=== PATIENT | female | born 1990 | race Caucasian/White ===

== ENCOUNTER 2016-09-30 15:32 | Emergency (ER) | payer OTHER ==
[2016-09-30 15:40] VITALS: BP 119/90; BMI 49.4
--- NOTE | 2016-09-30 16:10 | DR.GENAD ---
HPI - PCP Primary Care Physician: judit - Complaint/Symptoms Chief Complaint Doctors Comments: Patient is [place] of spiders; saw spider in cab of truck and jumped out of truck. She head a "pop" in knee. Chief Complaint:: patient stated she jumped off a ginger [employer]oot[employer] gator atv that was moving. landed on her feet and heard a pop in her right knee. - Source History Provided: Patient - Mode of Arrival Mode of Arrival: Ambulatory - Timing Onset of Chief Complaint: 09/30/16 PMH - PMH Past Medical History: No Past Surgical History: No - Family History History of Family Medical Conditions: Yes Family Medical History: Diabetes Mellitus, Cancer, PA, Coronary Artery Disease, Heart Failure, Hypertension - Social History Does patient currently use any type of tobacco product: Yes Have you used tobacco products in the last 12 months: Yes Type of Tobacco Use: Cigarettes How many years tobacco product used: 10 Does any household member use tobacco: No Alcohol Use: Occasionally Do you use any recreational Drugs:: No Lives With: Family Lives Where: Home - infectious screening In the last 2 months have you had wt loss of >10#?: NO Have you had fever, night sweats or hemotysis?: No Have you traveled outside the country in the last 6 months?: No Isolation: Standard ROS - Review of Systems Eyes: No Symptoms Reported, Eye Pain Respiratoy: No Symptoms Reported Cardiovascular: No Symptoms Reported Gastrointestinal/Abdominal: No Symptoms Reported Genitourinary: No Symptoms Reported Neurological: No Symptoms Reported Musculoskeletal: No Symptoms Reported Integumentary: Bruises (abrasion of right knee) Hematologic/Lymphatic: No Symptoms Reported All Other Systems: Reviewed and Negative PE - Vital Signs Vitals: Temperature 98.9 F Pulse Rate 93 Respiratory Rate 16 Blood Pressure 119/90 O2 Sat by Pulse Oximetry 100 - General General Appearance: Alert, In No Apparent Distress - Head Head Exam: Normal Inspection - Eyes Eye exam: Normal Appearance - ENT ENT Exam: Normal Exam External Ear Exam: Normal External Inspection TM/Canal Exam: Bilateral Normal Nose Exam: Normal Nose Exam Mouth Exam: Normal Inspection Throat Exam: Normal Inspection, Tonsillar Erythema - Neck Neck Exam: Normal Inspection - Chest Chest Inspection: Normal Inspection - Respiratory Respiratory Exam: Normal Lung Sounds Bilat Respiratory Exam: Bilateral Clear to Auscultation - Cardiovascular Cardiovascular Exam: Regular Rate, Normal Rhythm - Abdominal Exam Abdominal Exam: Normal Inspection, Normal Bowel Sounds Abdominal Tenderness: negative: RUQ, RLQ, LUQ, LLQ, Epigastrium, Suprapubic, Diffuse, Mild, Moderate, Severe, Other - Extremities Extremities Exam: Normal Inspection, Full ROM - Back Back Exam: Normal Inspection - Neurologic Neurological Exam: Alert, Oriented X3, CN II-XII Intact - Skin Skin Exam: Warm, Dry, Other (superficial abrasion of right knee) ROR - XRAY XRAY Interpreted by: Radiologist (X Ray Right Knee: Moderate osteoarthritic changes medially in the knee and a small suprapatella effusion with no acute bony abnormality) - Diagnosis Discharge Problem: Knee effusion, right Knee osteoarthritis Qualifiers: Osteoarthritis type: primary Laterality: right Qualified Code(s): M17.11 - Unilateral primary osteoarthritis, right knee - Discharge Plan Condition: Stable - Follow ups/Referrals Follow ups/Referrals: Brady Car [Primary Care Provider] - 3 days - Instructions
--- NOTE | 2016-09-30 16:41 | RAD ---
HISTORY: Pain Study: Right knee series Comparison: None Findings: There is moderate joint space narrowing medially in the knee. No fracture or dislocation is seen. Th e patella is intact. There is a small suprapatellar effusion. No calcifications are seen in the join t. The bones are well mineralized. IMPRESSION: Moderate osteoarthritic changes medially in the knee and a small suprapatellar effusion with no acut e bony abnormality. Reported By:
--- NOTE | 2016-09-30 16:42 | RAD ---
HISTORY: Pain Study: Right tib-fib series Comparison: None Findings: No fracture or dislocation is seen. The joint spaces are intact. There is mild stranding and edema i n the subcutaneous soft tissues anteriorly and laterally. IMPRESSION: No acute bony abnormality seen. Reported By:
== END 2016-09-30 17:11 | disposition home or self-care (01) ==
LOC: ER 15:44
DX: M17.11 Unilateral primary osteoarthritis, right knee (principal); M25.461 Effusion, right knee; Y33.XXXA Other specified events, undetermined intent, initial encounter
CPT/HCPCS: 29530; 73560; 73590; 99282